=== PATIENT | male | born 2000 | race Two or more races ===

== ENCOUNTER 2023-01-01 16:02 | Emergency (ER) | payer OTHER ==
[2023-01-01 16:14] VITALS: TEMP 98.5; BMI 25.0
[2023-01-01 18:32] LABS: BASO % 0.3 % (0-2.0); EOS % 0.8 % (0-4.5); HEMOGLOBIN 15.6 GM/dL (11.7-16.9); LYMPH % 35.7 % (8-40); MCHC 33.2 g/dl (32.0-35.9); MEAN CELL VOLUME 90.5 fl (80-96); MEAN PLT VOLUME 10.4 fl (7.5-11.1); MONO % 6.3 % (3.8-10.2); NEUT % 56.9 % (42.8-82.8); PLATELET COUNT 155 10^3/uL (134-434); RBC 5.19 M/mm3 (4.00-5.60); RDW 13.6 % (11.9-15.9); WHITE BLOOD COUNT 7.4 K/mm3 (4.0-10.0)
[2023-01-01 18:51] LABS: PH,URINE 7.5 (5.0-8.0); URINE APPEARANCE CLEAR; URINE BILIRUBIN NEGATIVE (NEGATIVE); URINE COLOR YELLOW; URINE GLUCOSE (UA) NEGATIVE (NEGATIVE); URINE KETONE NEGATIVE (NEGATIVE); URINE LEUK ESTERASE NEGATIVE (NEGATIVE); URINE NITRITE NEGATIVE (NEGATIVE); URINE PROTEIN NEGATIVE (NEGATIVE)
[2023-01-01 19:35] LABS: CHLORIDE 106 mmol/L (98-107); POTASSIUM 4.5 mmol/L (3.5-5.1); SODIUM 140 mmol/L (136-145)
[2023-01-01 19:39] LABS: ANION GAP 4 MMOL/L (8-16); BLOOD UREA NITROGEN 13.4 mg/dL (7-18); CO2 30 mmol/L (21-32); GLUCOSE,RANDOM 98 mg/dL (74-106)
[2023-01-01 19:40] LABS: ALBUMIN 4.1 g/dl (3.4-5.0)
[2023-01-01 19:42] LABS: CREATININE 1.1 mg/dL (0.55-1.3)
[2023-01-01 19:43] LABS: SGOT/AST 29 U/L (15-37); SGPT/ALT 49 U/L (13-61)
[2023-01-01 19:44] LABS: BILIRUBIN,TOTAL 0.5 mg/dL (0.2-1); TOT PROT 7.6 g/dl (6.4-8.2)
[2023-01-01 19:45] LABS: ALK PHOS 83 U/L (45-117)
[2023-01-01 21:43] VITALS: BP 122/78; PULSE 78; RESP 19
== END 2023-01-01 21:42 | disposition home or self-care (01) ==
LOC: JER 16:02
DX: M79.662 Pain in left lower leg (principal)
CPT/HCPCS: 36415; 80053; 81003; 82550; 82553; 85025; 93971-TC; 99284-25